=== PATIENT | female | born 1990 | race African-American/Black ===

== ENCOUNTER 2021-02-26 15:45 | Emergency (ER) | payer MEDICAID ==
[~2021-02-26] VITALS: Ht 154.9 cm; Wt 75.0 kg
[2021-02-26 16:03] VITALS: BP 135/88
[2021-02-26] MEDS ORDERED: ACETAMINOPHEN 325MG TABLET PO ONE (18:15)
[2021-02-26] MEDS ORDERED: DEXAMETHASONE 4MG TABLET PO ONE (18:15)
[2021-02-26] MEDS ORDERED: KETOROLAC 15MG/ML VIAL IM ONE (20:45)
== END 2021-02-26 21:06 | disposition home or self-care (01) ==
LOC: ER 15:45
DX: J02.8 Acute pharyngitis due to other specified organisms (principal); B97.89 Other viral agents as the cause of diseases classified elsewhere
CPT/HCPCS: 81025; 96372; 99283; J1885; J8540